=== PATIENT | male | born 1955 | race Caucasian/White ===

== ENCOUNTER 2020-05-23 11:27 | Emergency (ER) | payer MEDICARE, BC ==
[~2020-05-23] VITALS: Ht 167.6 cm; Wt 73.0 kg
[~2020-05-23 11:27] MED LIST: SIMV-43 PO
[2020-05-23 11:31] VITALS: BP 147/86
[2020-05-23] MEDS ORDERED: ACETAMINOPHEN WITH CODEINE 300/30MG TABLET PO ONE (12:00)
[2020-05-23] MEDS ORDERED: LIDOCAINE HCL/PF 1% 10 MG/ML 5ML VIAL IJ ONE (12:00)
[2020-05-23] MEDS ORDERED: TETANUS, DIPHTHERIA, PERTUSSIS VAC/PF 0.5ML (>7YR OLD) IM ONE (12:00)
[2020-05-23] MEDS ORDERED: BACITRACIN ZINC OINT UDPKT TOP ONE (12:00)
[2020-05-23] MEDS ORDERED: TOPUD MT (14:45)
[2020-05-23] MEDS ORDERED: IBUP-2028 MT (14:45)
== END 2020-05-23 15:19 | disposition home or self-care (01) ==
LOC: ER 11:27
DX: S61.213A Laceration without foreign body of left middle finger without damage to nail, initial encounter (principal); Z98.890 Other specified postprocedural states; Z90.49 Acquired absence of other specified parts of digestive tract; X58.XXXA Exposure to other specified factors, initial encounter; Y93.89 Activity, other specified; Y92.89 Other specified places as the place of occurrence of the external cause; Y99.8 Other external cause status
CPT/HCPCS: 12001; 73130; 90471; 90715; 99283; J3490

== ENCOUNTER 2020-05-25 08:47 | Emergency (ER) | payer MEDICARE, BC ==
[~2020-05-25] VITALS: Ht 167.6 cm; Wt 73.0 kg
[~2020-05-25 08:47] MED LIST changes: +IBUP-2028 MT; +TOPUD MT
[2020-05-25 10:09] VITALS: BP 105/59
== END 2020-05-25 10:10 | disposition home or self-care (01) ==
LOC: ER 09:38
DX: S61.213D Laceration without foreign body of left middle finger without damage to nail, subsequent encounter (principal); X58.XXXD Exposure to other specified factors, subsequent encounter; Z90.49 Acquired absence of other specified parts of digestive tract; Z98.890 Other specified postprocedural states; Z79.899 Other long term (current) drug therapy
CPT/HCPCS: 99281